=== PATIENT | female | born 1980 | race Caucasian/White ===

== ENCOUNTER → 2017-04-20 | Outpatient (CLI) | payer BC | END | disposition home or self-care (01) | LOC: KCIC US 15:18 | DX: E03.9 Hypothyroidism, unspecified (principal) | CPT/HCPCS: 76536 ==

== ENCOUNTER 2018-02-24 13:26 | Emergency (ER) | payer BC ==
[~2018-02-24] VITALS: Ht 175.3 cm; Wt 122.5 kg
[2018-02-24] MEDS ORDERED: IV NORMAL SALINE 1000ML BAG 1,000 ML IV SCH (13:50)
--- NOTE | 2018-02-24 14:05 | PHYS DOC ---
Past Medical History Past Medical History: Hypothyroid Past Surgical History: , Tubal ligation Smoking: Cigarettes, Less than 1pk/day Alcohol Use: Rarely Drug Use: None Adult General Chief Complaint Chief Complaint: DIZZY/LIGHT HEADED HPI HPI Patient is a 37-year-old female who presents to the emergency department for evaluation. She states that for the past 3-4 days, she has had episodes of palpitations, or she feels as if her heart will beat fast. This sometimes lasts several minutes. She has not had any chest discomfort, but does describe disconcerting feeling in her chest associated with the palpitations. She has had occasional shortness of breath, but has not had any pleuritic chest pain or any other chest pain. She has not had any nausea or vomiting. 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 She has not had any abdominal pain. She has not had any diarrhea. Her LMP was about 2 weeks ago, she denies possibility of , stating that she has had a tubal ligation. She has not had any lower abdominal pain. She has not had any urinary symptoms. There are no alleviating or exacerbating factors to the patient's symptoms otherwise. Review of Systems Review of Systems Constitutional: Denies fever or chills [] Eyes: Denies change in visual acuity, redness, or eye pain [] HENT: Denies nasal congestion or sore throat [] Respiratory: Denies cough or pleuritic chest pain[] Cardiovascular: No additional information not addressed in HPI [] GI: Denies abdominal pain, nausea, vomiting, bloody stools or diarrhea [] : Denies dysuria or hematuria [] Musculoskeletal: Denies back pain or joint pain [] Integument: Denies rash or skin lesions [] Neurologic: Denies headache, focal weakness or sensory changes [] Endocrine: Denies polyuria or polydipsia [] All other systems were reviewed and found to be within normal limits, except as documented in this note. Current Medications Current Medications Current Medications Medications (Trade) Dose Ordered Sig/Vahe Start Time Stop Time Status Last Admin Dose Admin Sodium Chloride 1,000 ml @ 1,000 mls/hr Q1H 02/24/18 13:50 02/24/18 14:49 DC 02/24/18 14:17 1,000 MLS/HR Allergies Allergies Allergies Coded Allergies Type Severity Reaction Last Updated Verified Penicillins Allergy Intermediate 02/24/18 Yes cefaclor Allergy Intermediate 02/24/18 Yes Physical Exam Physical Exam PHYSICAL EXAM: CONSTITUTIONAL: Well developed, well nourished HEAD: normocephalic, atraumatic EENT: PERRL, EOMI. Conjunctivae normal color, sclerae non-icteric; moist mucous membranes. NECK: Supple, non-tender; no meningismus. LUNGS: Lungs CTA, breathing even and unlabored. Normal air movement. HEART: Regular rate and rhythm, no murmur CHEST: No deformity; non-tender ABDOMEN: The abdomen is soft, and non-tender, no masses or bruits. EXTREM: Normal ROM; no deformity, no calf tenderness. Normal pulses palpable in all extremities. There is no pedal edema. SKIN: No rash; no diaphoresis NEURO: Alert; normal speech and cognition; CN's grossly intact; strength grossly intact without focal deficit. BACK: No CVA TTP. Current Patient Data Vital Signs Vital Signs Date Time Temp Pulse Resp B/P (MAP) Pulse Ox O2 Delivery O2 Flow Rate FiO2 02/24/18 13:47 98.5 88 18 144/84 (104) 99 Room Air 98.5 Lab Values Laboratory Tests Test 02/24/18 14:10 White Blood Count 12.8 x10^3/uL (4.0-11.0) H Red Blood Count 4.72 x10^6/uL (3.50-5.40) Hemoglobin 13.5 g/dL (12.0-15.5) Hematocrit 39.1 % (36.0-47.0) Mean Corpuscular Volume 83 fL (79-100) Mean Corpuscular Hemoglobin 29 pg (25-35) Mean Corpuscular Hemoglobin Concent 34 g/dL (31-37) Red Cell Distribution Width 15.2 % (11.5-14.5) H Platelet Count 387 x10^3/uL (140-400) Neutrophils (%) (Auto) 70 % (31-73) Lymphocytes (%) (Auto) 22 % (24-48) L Monocytes (%) (Auto) 7 % (0-9) Eosinophils (%) (Auto) 1 % (0-3) Basophils (%) (Auto) 1 % (0-3) Neutrophils # (Auto) 8.9 x10^3uL (1.8-7.7) H Lymphocytes # (Auto) 2.8 x10^3/uL (1.0-4.8) Monocytes # (Auto) 0.8 x10^3/uL (0.0-1.1) Eosinophils # (Auto) 0.1 x10^3/uL (0.0-0.7) Basophils # (Auto) 0.1 x10^3/uL (0.0-0.2) D-Dimer ([place]) < 0.27 ug/mlFEU Sodium Level 140 mmol/L (136-145) Potassium Level 3.7 mmol/L (3.5-5.1) Chloride Level 103 mmol/L (98-107) Carbon Dioxide Level 28 mmol/L (21-32) Anion Gap 9 (6-14) Blood Urea Nitrogen 16 mg/dL (7-20) Creatinine 0.8 mg/dL (0.6-1.0) Estimated GFR (Cockcroft-Gault) 80.3 BUN/Creatinine Ratio 20 (6-20) Glucose Level 103 mg/dL (70-99) H Calcium Level 9.5 mg/dL (8.5-10.1) Magnesium Level 1.8 mg/dL (1.8-2.4) Total Bilirubin 0.2 mg/dL (0.2-1.0) Aspartate Amino Transferase (AST) 17 U/L (15-37) Alanine Aminotransferase (ALT) 31 U/L (14-59) Alkaline Phosphatase 45 U/L (46-116) L Troponin I Quantitative < 0.017 ng/mL (0.000-0.055) Total Protein 8.0 g/dL (6.4-8.2) Albumin 3.9 g/dL (3.4-5.0) Albumin/Globulin Ratio 1.0 (1.0-1.7) Thyroid Stimulating Hormone (TSH) 1.714 uIU/mL (0.358-3.74) Free Thyroxine 0.99 ng/dL (0.76-1.46) Laboratory Tests 02/24/18 14:10 Laboratory Tests 02/24/18 14:10 EKG EKG [Normal sinus rhythm with a normal rate, normal axis, normal intervals, there are no acute ischemic ST/T changes.] Radiology/Procedures Radiology/Procedures [PROCEDURE: CHEST PA & LATERAL CHEST PA LATERAL History: SHORTNESS OF BREATH, PALPITATIONS, DIZZINESS X 5 DAYS Comparison: None. Findings: The cardiomediastinal silhouette is normal. Pulmonary vasculature is normal. The lungs are clear. No pleural effusion or pneumothorax is seen. There is no acute bone abnormality. IMPRESSION: No acute cardiopulmonary process. ] Course & Med Decision Making Course & Med Decision Making Pertinent Labs and Imaging studies reviewed. (See chart for details) [3:55 PM:Patient remains stable. I discussed test results, the need for close follow-up, and return precautions.] Dragon Disclaimer Dragon Disclaimer This electronic medical record was generated, in whole or in part, using a voice recognition dictation system. Departure Departure Impression: Primary Impression: Palpitations Additional Impression: Dizziness Disposition: 01 HOME, SELF-CARE Condition: STABLE Referrals: KULWINDER NICOLE DO (PCP) CONCHITA BEACH MD Patient Instructions: Dizziness, Palpitations Problem Qualifiers ANDREA CHEEMA MD Feb 24, 2018 14:05
--- NOTE | 2018-02-24 14:06 | EKG ---
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
--- NOTE | 2018-02-24 14:17 | RAD ---
CHEST PA LATERAL History: SHORTNESS OF BREATH, PALPITATIONS, DIZZINESS X 5 DAYS Comparison: None. Findings: The cardiomediastinal silhouette is normal. Pulmonary vasculature is normal. The lungs are clear. No pleural effusion or pneumothorax is seen. There is no acute bone abnormality. IMPRESSION: No acute cardiopulmonary process. Electronically signed by: Jesse Dobbins MD (02/24/2018 2:13 PM) [id number]
[2018-02-24 14:29] LABS: BASO # 0.1 x10^3/uL (0.0-0.2); BASO % 1 % (0-3); EOS # 0.1 x10^3/uL (0.0-0.7); EOS % 1 % (0-3); HEMATOCRIT 39.1 % (36.0-47.0); HEMOGLOBIN 13.5 g/dL (12.0-15.5); LYMPH # 2.8 x10^3/uL (1.0-4.8); LYMPH % 22 % (24-48); MEAN CORPUSCULAR HEMOGLOBIN 29 pg (25-35); MEAN CORPUSCULAR HGB CONC 34 g/dL (31-37); MEAN CORPUSCULAR VOLUME 83 fL (79-100); MONO # 0.8 x10^3/uL (0.0-1.1); MONO % 7 % (0-9); NEUT # 8.9 x10^3uL (1.8-7.7); NEUT % 70 % (31-73); PLATELET COUNT 387 x10^3/uL (140-400); RED BLOOD COUNT 4.72 x10^6/uL (3.50-5.40); RED CELL DISTRIBUTION WIDTH 15.2 % (11.5-14.5); WHITE BLOOD COUNT 12.8 x10^3/uL (4.0-11.0)
[2018-02-24 14:51] LABS: CALCIUM 9.5 mg/dL (8.5-10.1); CREATININE 0.8 mg/dL (0.6-1.0); GFR 80.3; POTASSIUM 3.7 mmol/L (3.5-5.1)
[2018-02-24 15:11] LABS: ALBUMIN 3.9 g/dL (3.4-5.0); MAGNESIUM 1.8 mg/dL (1.8-2.4); TOTAL BILIRUBIN 0.2 mg/dL (0.2-1.0)
[2018-02-24 15:41] LABS: FREE T4 0.99 ng/dL (0.76-1.46); THYROID STIM HORMONE (TSH) 1.714 uIU/mL (0.358-3.74)
[2018-02-24 15:50] VITALS: BP 128/80
== END 2018-02-24 16:12 | disposition home or self-care (01) ==
LOC: ER 13:26
DX: R00.2 Palpitations (principal); R42 Dizziness and giddiness; F17.210 Nicotine dependence, cigarettes, uncomplicated; E03.9 Hypothyroidism, unspecified; Z98.890 Other specified postprocedural states; Z98.51 Tubal ligation status; Z88.0 Allergy status to penicillin; Z88.1 Allergy status to other antibiotic agents
CPT/HCPCS: 36415; 71046; 80053; 83735; 84439; 84443; 84484; 85025; 85379; 93005; 96360; 99284; J7030

== ENCOUNTER 2021-05-17 08:39 | Emergency (ER) | payer BC ==
[~2021-05-17] VITALS: Ht 172.7 cm; Wt 144.4 kg
--- NOTE | 2021-05-17 09:13 | PHYS DOC ---
Past Medical History Past Medical History: Hypothyroid Past Surgical History: , Tubal ligation Smoking Status: Former Smoker Alcohol Use: Occasionally Drug Use: None General Adult EDM: Chief Complaint: UPPER EXTREMITY INJURY HPI: HPI: Patient is a 41 year old female who presents with left upper extremity pain after a fall. Patient was walking in her driveway approximately 1 hour prior to arrival when she fell on a patch of ice. She fell onto her left shoulder. Has pain in her shoulder and elbow. Has had limited range of motion since the fall. "Something in my arm is not right." No head strike or neck pain. No LOC. Denies any other areas of injury. Review of Systems: Review of Systems: Constitutional: Denies fever or chills. [] Eyes: Denies change in visual acuity. [] HENT: Denies nasal congestion or sore throat. [] Respiratory: Denies cough or shortness of breath. [] Cardiovascular: Denies chest pain or edema. [] GI: Denies abdominal pain, nausea, vomiting, bloody stools or diarrhea. [] : Denies dysuria. [] Musculoskeletal: Reports left upper extremity pain. Integument: Denies rash. [] Neurologic: Denies headache, focal weakness or sensory changes. [] Heart Score: C/O Chest Pain: N/A Allergies: Allergies: Allergies Coded Allergies Type Severity Reaction Last Updated Verified Penicillins Allergy Intermediate 02/24/18 Yes cefaclor Allergy Intermediate 02/24/18 Yes Physical Exam: PE: Constitutional: Well developed, well nourished, no acute distress, non-toxic appearance. [] HENT: Normocephalic, atraumatic, bilateral external ears normal, oropharynx moist, no oral exudates, nose normal. [] Eyes: PERRLA, EOMI, conjunctiva normal, no discharge. [] Neck: Normal range of motion, no tenderness, supple, no stridor. [] Cardiovascular:Heart rate regular rhythm, no murmur [] Lungs & Thorax: Normal work of breathing Extremities: No tenderness to palpation over the clavicle, scapula, AC joint.+ Tenderness over the humeral head and proximal humerus. Patient will not range the shoulder actively, and does not allow passive range of motion due to concern for pain. Normal range of motion of the elbow, but complains of referred pain over the proximal humerus. No tenderness to palpation over the medial/lateral epicondyles, proximal radius, or olecranon. No tenderness to palpation in the forearm or wrist. Normal strategic manager strength, thumb extension, wrist extension, finger abduction. Sensation intact over all finger pads and in the radial distribution of the left hand. Neurologic: Alert and oriented X 3, normal motor function, normal sensory function, no focal deficits noted. [] Psychologic: Affect normal, judgement normal, mood normal. [] Current Patient Data: Vital Signs: Vital Signs Date Time Temp Pulse Resp B/P (MAP) Pulse Ox O2 Delivery O2 Flow Rate FiO2 05/17/21 08:52 98.8 79 22 141/82 (101) 98 Room Air 98.8 EKG: EKG: [] Radiology/Procedures: Radiology/Procedures: [] Impression: [facility] [address] [place] [address] IMAGING REPORT Signed PATIENT: CODY GONCALVES ACCOUNT: [id number] : 1980 LOCATION: ER AGE: 41 SEX: F EXAM STATUS: REG ER ORD. PHYSICIAN: NELIA ALBERT MD REASON: LUE pain after fall PROCEDURE: HUMERUS LEFT Left elbow 3 views: Reason for examination: Left upper extremity pain after fall. No fracture or dislocation is evident. The bone density is normal. No abnormal periosteal reaction is seen. Joint spaces maintained. No joint effusion is seen. IMPRESSION: No acute bony abnormality seen at the left elbow. Left humerus 2 views: There appears to be a fracture of the greater tuberosity with mild displacement. No other site of fracture is seen in the humerus. Bone density is normal. No abnormal periosteal reaction is seen. IMPRESSION: Fracture at the greater tuberosity of the humerus with mild displacement. Left shoulder 3 views: Again noted is the fracture at the greater tuberosity with mild displacement. No other site of fracture or dislocation is seen. Bone density is normal. Joint spaces are maintained. IMPRESSION: Fracture at the great tuberosity with mild displacement. Electronically signed by: Elizabeth Elmore MD (05/17/2021 10:11 AM) [id number] DICTATED and SIGNED BY: ELIZABETH ELMORE MD DATE: 05/17/21 [id number] Course & Med Decision Making: Course & Med Decision Making Pertinent Labs and Imaging studies reviewed. (See chart for details) Patient 41-year-old female who complains of left shoulder, proximal humerus, elbow discomfort after a fall on ice just prior to arrival. X-rays reveal a small displaced fracture of the greater tuberosity of the humerus. Patient will be placed in sling and provided with orthopedic follow-up. Short course of hydrocodone Rx in addition to Tylenol and ibuprofen for pain control. Dragon Disclaimer: Dragon Disclaimer: This electronic medical record was generated, in whole or in part, using a voice recognition dictation system. Departure Departure Impression: Primary Impression: Greater tuberosity of humerus fracture Disposition: HOME / SELF CARE / HOMELESS Condition: STABLE Referrals: ASHLEY WILD DO (PCP) RICK BEE MD PLEASE CALL DR. BEE'S OFFICE ON WEDNESDAY TO SCHEDULE AN APPOINTMENT. Additional Instructions: You have a fracture in your humerus near your shoulder. Please schedule a follow-up appointment with our data warehousing specialist, Dr. Bee. Please wear the sling to protect your arm. For pain tylenol and ibuprofen are best used on a schedule. Please alternate between the two. -Tylenol 650-1000 mg every 6 hours (do not exceed 4000 mg in one day -- the hydrocodone contains 325 mg per tab, please count this in your daily total) -Ibuprofen 400 mg every 6 hours. Take with food. Do not take for more than 1 week. For pain not controlled by the above you can take: -Hydrocodone/acetaminophen 5/325 mg every 4 hours as needed. This is a narcotic medication and can make you tired and impaired. Do not drive or operate machinery while taking hydrocodone. It can also make you consitpated so please consider taking docusate and miralax (as directed by over the counter directions) to prevent constipation. Please try to take as little hydrocodone as possible and wean yourself off as soon as you are able because it is an addictive medication. Scripts Hydrocodone Bit/Acetaminophen (HYDROCODONE-APAP 5-325 ) 1 Tab Tablet 1 TAB PO PRN Q4-6HRS PRN for PAIN, #15 TAB 0 Refills Prov: NELIA ALBERT MD 05/17/21 NELIA ALBERT MD May 17, 2021 09:13
--- NOTE | 2021-05-17 10:13 | RAD ---
Left elbow 3 views: Reason for examination: Left upper extremity pain after fall. No fracture or dislocation is evident. The bone density is normal. No abnormal periosteal reaction is seen. Joint spaces maintained. No joint effusion is seen. IMPRESSION: No acute bony abnormality seen at the left elbow. Left humerus 2 views: There appears to be a fracture of the greater tuberosity with mild displacement. No other site of fra cture is seen in the humerus. Bone density is normal. No abnormal periosteal reaction is seen. IMPRESSION: Fracture at the greater tuberosity of the humerus with mild displacement. Left shoulder 3 views: Again noted is the fracture at the greater tuberosity with mild displacement. No other site of fractu re or dislocation is seen. Bone density is normal. Joint spaces are maintained. IMPRESSION: Fracture at the great tuberosity with mild displacement. Electronically signed by: Elizabeth Hodgson MD (05/17/2021 10:11 AM) [id number]
[2021-05-17] MEDS ORDERED: HYDROcodone/APAP 5/325MG 1 TAB TABLET ONE (10:27)
[2021-05-17] MEDS ORDERED: HYDROcodone/APAP 5/325MG 1 TAB TABLET PO ONE (10:30)
[2021-05-17] MEDS ORDERED: HYDR-2761 PO (10:30)
[2021-05-17 10:34] VITALS: BP 144/79
== END 2021-05-17 10:44 | disposition home or self-care (01) ==
LOC: ER 08:39
DX: S42.252A Displaced fracture of greater tuberosity of left humerus, initial encounter for closed fracture (principal); Z87.891 Personal history of nicotine dependence; E03.9 Hypothyroidism, unspecified; Z88.0 Allergy status to penicillin; Z88.8 Allergy status to other drugs, medicaments and biological substances; W18.39XA Other fall on same level, initial encounter; Y93.01 Activity, walking, marching and hiking; Y92.89 Other specified places as the place of occurrence of the external cause; Y99.8 Other external cause status
CPT/HCPCS: 73030; 73060; 73080; 99284; A4565